=== PATIENT | male | born 1995 | race Caucasian/White ===

== ENCOUNTER 2021-03-02 15:56 | Emergency (ER) | payer BC ==
[~2021-03-02] VITALS: Ht 170.2 cm; Wt 65.8 kg
--- NOTE | 2021-03-02 15:56 | NUR ---
Patient brought in by [facility] 83 for syncopal episode after receiving the covid vaccination
--- NOTE | 2021-03-02 15:57 | NUR ---
at bedside for assessment
[2021-03-02] MEDS: IV NORMAL SALINE 1000 ML BAG IV ONE (16:11)
[2021-03-02 16:21] LABS: BASOPHILS % (AUTO) 0.5 % (0.0-2.0); EOSINOPHILS # (AUTO) 0.2 K/uL (0.0-0.7); EOSINOPHILS % (AUTO) 2.4 % (0.0-7.0); HEMATOCRIT 44.7 % (36.7-47.1); HEMOGLOBIN 14.9 g/dL (12.5-16.3); LYMPHOCYTES # (AUTO) 2.2 K/uL (20.0-40.0); LYMPHOCYTES % (AUTO) 32.5 % (20.5-51.5); MEAN CORPUSCULAR HEMOGLOBIN 29.6 uug (23.8-33.4); MEAN CORPUSCULAR HGB CONC 33 g/dL (32.5-36.3); MEAN CORPUSCULAR VOLUME 88.9 fL (73.0-96.2); MONOCYTES # (AUTO) 0.6 K/uL (2.0-10.0); MONOCYTES % (AUTO) 9.1 % (0.0-11.0); NEUTROPHILS # (AUTO) 3.7 K/uL (1.8-8.9); NEUTROPHILS % (AUTO) 55.5 % (38.5-71.5); PLATELET COUNT (AUTO) 293 K/uL (152-348); RED BLOOD CELL COUNT(AUTO) 5.03 MIL/uL (4.06-5.63); WHITE BLOOD COUNT (AUTO) 6.7 K/uL (3.6-10.2)
[2021-03-02 16:26] LABS: POTASSIUM 3.3 mmol/L (3.5-5.1)
[2021-03-02] MEDS: POTASSIUM CHLORIDE 20 MEQ TAB.PRT.SR PO ONE (16:56)
[2021-03-02] MEDS ORDERED: POTASSIUM CHLORIDE 20 MEQ TAB.PRT.SR ONE (16:58)
[2021-03-02 17:32] LABS: *AMPHETAMINE, URINE NEGATIVE (NEGATIVE); *CANNABINOID, URINE POSITIVE (NEGATIVE); *COCCAINE, URINE NEGATIVE (NEGATIVE); *OPIATE, URINE NEGATIVE (NEGATIVE); *PHENCYCLIDINE SCREEN,URINE NEGATIVE (NEGATIVE)
[2021-03-02] MEDS ORDERED: POTA20TA10 PO (18:11)
--- NOTE | 2021-03-02 18:20 | NUR ---
Patient discharged to home in stable condition. Patient states he will order an "Uber". Rx given, Able to ambulate with steady gait. Written and verbal after care instructions given. Patient verbalizes understanding of instructions. Stressed follow up or return to ER for worsening s/s.
[2021-03-02 18:22] VITALS: BP 125/73
== END 2021-03-02 18:20 | disposition home or self-care (01) ==
LOC: ER 16:01
DX: R55 Syncope and collapse (principal); E87.6 Hypokalemia; R00.1 Bradycardia, unspecified; F12.90 Cannabis use, unspecified, uncomplicated
CPT/HCPCS: 36415; 85025; 93005; A4663; J7030